=== PATIENT | female | born 1970 | race Two or more races ===

== ENCOUNTER 2024-11-16 12:22 | Emergency (ER) | payer OTHER, SELFPAY ==
[2024-11-16 12:23] VITALS: BMI 39.4
[2024-11-16 12:37] VITALS: BP 141/85; PULSE 75; RESP 16; TEMP 36.6; O2SAT 99
--- NOTE | 2024-11-16 12:40 | XR_ITS ---
Examination: PA lateral chest 2 views TECHNIQUE: Upright PA lateral chest 2 views Exam date and time: November 16, 2024 at 12:57 PM INDICATIONS: Posterior chest pain today FINDINGS: Normal heart size Lungs are clear. The osseous structures are intact IMPRESSION: No active disease
--- NOTE | 2024-11-16 12:40 | EKG_ITS ---
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
--- NOTE | 2024-11-16 12:41 | EDNOTE_ITS ---
<Statement entered by Akila Thomson MD - 11/16/24 17:41> As co-signing physician, I was present and available for consult prn. I concur with the plan and care as documented by the midlevel provider. ED Chest Pain RME/HPI General Chief Complaint: Chest Pain Stated Complaint: CHEST PAIN SINCE YESTERDAY Time Seen by Provider: 11/16/24 12:28 Source: patient Arrival date/time: 11/16/24 12:22 53-year-old female with a history of hypertension presents to the emergency room with a chief complaint of 10 out of 10 sternal chest pain that radiates to her back x 2 days Mode of arrival: ambulatory Limitations: no limitations Related Data Previous Rx's ?Medication ?Instructions ?Recorded Hydrocodone/Acetaminophen * (NORCO 1 tab PO Q6H PRN pa in #14 tabs 01/25/17 5/325 *) ondansetron 4 mg disintegrating 4 mg PO Q8H PRN nausea and 02/29/24 tablet vomiting #14 tabs Allergies Allergy/AdvReac Type Severity Reaction Status Date / Time LATEX GLOVES Allergy Unknown Rash Uncoded 11/16/24 12:25 Review of Systems Review of Systems Systems Reviewed: All systems reviewed, normal except as documented Constitutional Constitutional: Reports system reviewed and no additional complaints, except as documented, Denies fatigue, Denies fever(s), Denies headache(s) and Denies weakness Eyes Eyes: Reports system reviewed and no additional complaints, except as documented, Denies blurry vision and Denies change in vision ENT Ears, Nose, Mouth, and Throat: Reports system reviewed and no additional complaints, except as documented, Denies otalgia, Denies headache(s), Denies nasal congestion, Denies throat swelling and Denies vertigo Cardiovascular Cardiovascular: Reports system reviewed and no additional complaints, except as documented, Reports chest pain, Reports chest pain with activity, Denies dyspnea and Denies dyspnea on exertion Respiratory Respiratory: Reports system reviewed and no additional complaints, except as documented, Denies chest congestion, Denies cough, Denies dyspnea, Denies dyspnea on exertion and Denies wheezing Gastrointestinal Gastrointestinal: Reports system reviewed and no additional complaints, except as documented, Denies abdominal pain, Denies cramping, Denies nausea and Denies vomiting Genitourinary Genitourinary: Reports system reviewed and no additional complaints, except as documented Musculoskeletal Musculoskeletal: Reports system reviewed and no additional complaints, except as documented and Denies back pain Integumentary/Breasts Skin/Breast: Reports system reviewed and no additional complaints, except as documented and Denies wounds Neurologic Neurologic: Reports system reviewed and no additional complaints, except as documented, Denies confusion, Denies headache(s), Denies lack of coordination, Denies vertigo and Denies weakness Psychiatric Psychiatric: Reports system reviewed and no additional complaints, except as documented, Denies anxiety, Denies confusion, Denies depression, Denies paranoia, Denies suicidal ideation and Denies tactile hallucinations Endocrine Endocrine: Reports system reviewed and no additional complaints, except as documented and Denies fatigue Hematologic/Lymphatic Hematologic/Lymphatic: Reports system reviewed and no additional complaints, except as documented and Denies lymphadenopathy Allergic/Immunologic Allergic/Immunologic: Reports system reviewed and no additional complaints, except as documented, Denies throat swelling, Denies urticaria and Denies wheezing Past Medical History Social History SMOKING STATUS: Never smoker ED Exam General Limitations: Present no limitations General appearance: Present alert and in no apparent distress Head Head exam: Present atraumatic Eye Eye exam: Present normal appearance, PERRL and EOMI ENT ENT exam: Present normal exam, normal oropharynx and mucous membranes moist Neck Neck exam: Present normal inspection, full ROM and trachea midline Chest Chest inspection: Present normal inspection and symmetric chest wall rise Respiratory Respiratory exam: Present normal lung sounds bilaterally; Absent respiratory distress, wheezes, stridor, accessory muscle use or prolonged expiratory phase Cardiovascular Cardiovascular exam: Present regular rate, normal rhythm, normal heart sounds, +S1 and +S2; Absent bradycardia, tachycardia, irregular rhythm, systolic murmur, diastolic murmur or JVD Abdominal Exam Abdominal exam: Present soft and normal bowel sounds Extremities Exam Extremities exam: Present normal inspection and full ROM Back Exam Back exam: Present normal inspection and full ROM Neurological Exam Neurological exam: Present alert, oriented X3 and CN II-XII intact Psychiatric Psychiatric exam: Present normal affect and normal mood Skin Skin exam: Present warm, dry, intact and normal color Course Quality Measures none Orders Category Date Time Status EKG (ED ONLY) *Do not use* NOW Care 11/16/24 12:40 Completed EKG (ED Only) Stat Exams 11/16/24 12:40 Draft XR chest 2V Stat Exams 11/16/24 12:40 Completed B-Type Natriuretic Peptide Stat Lab 11/16/24 13:05 Completed CBC Stat Lab 11/16/24 13:05 Completed Comprehensive Metabolic Panel Stat Lab 11/16/24 13:05 Completed Magnesium Stat Lab 11/16/24 13:05 Completed Partial Thromboplastin Time Stat Lab 11/16/24 13:05 Completed Prothrombin Time with INR Stat Lab 11/16/24 13:05 Completed Troponin I Stat Lab 11/16/24 13:05 Completed Vital Signs Vital signs: Vital Signs Temperature 97.8 F 11/16/24 12:37 Pulse Rate 75 11/16/24 12:37 Respiratory Rate 16 11/16/24 12:37 Blood Pressure 141/85 H 11/16/24 12:37 Pulse Oximetry (%) 99 11/16/24 12:37 Oxygen Delivery Method Room Air 11/16/24 12:37 Procedures -ED EKG Interpretation #1: Date of EK11/16/24 Rate: 77 Interpretation: Reviewed by me EKG Impression: Normal sinus rhythm Additional EKG comment: EKG shows normal sinus rhythm at [address] deviation Chest Pain MDM Narrative MDM Narrative:: 53-year-old female with a history of hypertension presents to the emergency room with a chief complaint of 10 out of 10 sternal chest pain that radiates to her back x 2 days Patient is hemodynamically stable and in no apparent distress Lung sounds are clear bilaterally there is no wheezing or any abnormal breath sounds. EKG was completed and shows normal sinus rhythm at [address] deviation. CBC CMP troponin were all negative X-ray was completed and was negative for any pneumonic infiltrates. Patient was discharged and educated to follow-up with primary care provider and return to the emergency room for any evidence of worsening signs or symptoms Patient data External records reviewed:: [facility] previous records Clinical information provided by:: patient Social determinants that could affect healthcare access:: none Patient has the following chronic illnesses:: Hypertension How is presenting disease/condition affected by chronic disease/condition?: uneffected by Evaluation data The following diagnostics were reviewed and interpreted by me:: lab results and radiology exam(s) Lab and/or radiology exams considered but not ordered:: Labs and radiology exams considered and ordered Interpretation Summary: Chest [id number]: Normal heart size Lungs are clear. The osseous structures are intact IMPRESSION: No active disease Medications / Prescriptions Medications or Prescriptions considered but not ordered:: Medication not given Medication administrations:: Medication not given Consultations Consultation(s) initiated? (list below): No Diagnosis Chest Pain Differential Diagnosis: stable angina, atypical chest pain, st elevation myocardial infarction and chest pain Most likely diagnosis given after review of the tests above:: Chest pain noncardiac Admission Indicated Admission indicated?: not indicated Admission Request Was there a request for admission?: No Disposition Plan Disposition Plan: Discharge Discharge Attestation Discharge Attestation: The patient and all family members were given an opportunity to ask questions and understood the discharge instructions. Discharge instructions specifically effects, indications for sooner follow up or return to the emergency department, and the expected course of current diagnosis. Patient condition: Stable Discharge Plan Plan Patient Disposition: HOME (Self Care) Disposition Comment: Stable yeah Prescriptions/Referrals Prescriptions/Med Rec: No Action Hydrocodone/Acetaminophen * (NORCO 5/325 *) 1 TAB tablet 1 tab PO Q6H PRN (Reason: pain) Qty: 14 0RF ondansetron 4 mg tablet,disintegrating 4 mg PO Q8H PRN (Reason: nausea and vomiting) Qty: 14 0RF Referrals: Charu Madrid NP [Primary Care Provider] - In 1 week Problem List Clinical Impression: Chest pain, Chest pain, non-cardiac Patient/Caregiver Discharge Instructions Education Materials: ED Chest Pain, Noncardiac, ED Chest Pain, Uncertain Cause Additional Instructions: Please follow-up with your primary care provider in the next 24 to 48 hours. Your cardiac examination was completed and was negative for any acute findings. Your blood work was within normal limits. Your chest x-ray was negative for any pneumonic infiltrates. For any evidence of worsening signs or symptoms please return to the emergency room immediately Print Language: Norwegian Stand Alone Forms: Sheyla Award Info., Patient Portal Info Letter MASSIEL/LIYA Supervising Physician MASSIEL/LIYA Supervising Physician: Dr. THOMSON
[2024-11-16 13:48] LABS: Basophils # (Auto) 0.1 Thou/mm3 (0.0-0.2); Basophils % (Auto) 1 % (0-2.5); Eosinophils # (Auto) 0.1 Thou/mm3 (0.0-0.5); Eosinophils % (Auto) 2 % (0-10); Hematocrit 35.2 % (36.0-46.0); Immature Granulocytes % (Auto) 0 % (0-0); Immature Granulocytes Auto 0.03 Thou/mm3 (0.00-0.00); Lymphocytes # (Auto) 2.2 Thou/mm3 (1.0-4.8); Lymphocytes % (Auto) 27 % (10-50); Mean Corpuscular HGB Conc 34.1 g/dl (31.0-37.0); Mean Corpuscular Hemoglobin 28.3 pg (25.0-35.0); Mean Corpuscular Volume 83 fL (80-100); Monocytes # (Auto) 0.5 Thou/mm3 (0.0-0.8); Monocytes % (Auto) 6 % (0-12); Neutrophils # (Auto) 5.2 Thou/mm3 (1.8-7.7); Neutrophils % (Auto) 64 % (37-80); Nucleated Red Blood Cell % 0 /100 WBC (0); Platelet Count 304 Thou/mm3 (140-440); RDW Standard Deviation 41.7 fL (36.4-46.3); Red Blood Count 4.24 Miln/mm3 (4.00-5.20); White Blood Count 8.2 Thou/mm3 (3.6-11.0)
[2024-11-16 14:04] LABS: B-Type Natriuretic Peptide < 20 pg/mL (0-100)
[2024-11-16 14:08] LABS: Alanine Aminotransferase 26 U/L (10-49); Albumin, Serum 4.4 gm/dL (3.5-5.0); Albumin/Globulin Ratio 1.4 (1.2-2.2); Alkaline Phosphatase 82 U/L (46-116); Anion Gap 9 (7-16); Aspartate Amino Transferase 25 U/L (0-34); BUN/Creatinine Ratio 21 Ratio (12-20); Bilirubin,Total 0.4 mg/dL (0.3-1.2); Blood Urea Nitrogen 15 mg/dL (9-23); Calcium 9.9 mg/dL (8.3-10.6); Calcium (Corrected) 9.9 mg/dL (8.5-10.1); Carbon Dioxide 26.8 mMol/L (20.0-31.0); Chloride 105 mMol/L (98-107); Creatinine (Component) 0.7 mg/dL (0.6-1.3); Estimated Creatinine Clearance 108.1 mL/min (>60); Globulin 3.1 gm/dL (2.3-3.5); Glucose 129 mg/dL (74-106); Magnesium 1.9 mg/dL (1.6-2.6); Osmolality,Calculated 284 (275-295); Potassium 3.6 mMol/L (3.4-5.1); Sodium 141 mMol/L (136-145); Total Protein 7.5 gm/dL (5.7-8.2); Troponin I < 0.002 ng/mL (0.0-0.045); eGFR > 60 See Note
[2024-11-16 14:14] LABS: Partial Thromboplastin Time 27.4 Seconds (22.0-36.0); Prothrombin Time 10.9 Seconds (9.0-12.2)
[2024-11-16 15:09] VITALS: BP 145/80; PULSE 77; RESP 17; TEMP 37.1; O2SAT 98
== END 2024-11-16 15:27 | disposition home or self-care (01) ==
PROVIDERS: Nurse Practitioner Family; Emergency Provider Emergency Medicine; PCP Nurse Practitioner Family
DX: R07.89 Other chest pain (principal); I10 Essential (primary) hypertension; Z91.040 Latex allergy status
CPT/HCPCS: 36415; 71046; 80053; 83735; 83880; 84484; 85025; 85610; 85730; 93005; 99283

== ENCOUNTER 2024-11-22 10:53 | Emergency (ER) | payer OTHER, SELFPAY ==
[2024-11-22 11:19] VITALS: BP 136/62; PULSE 74; RESP 18; TEMP 36.6; O2SAT 99; BMI 42.0
--- NOTE | 2024-11-22 11:23 | EKG_ITS ---
[facility] Test Date: 2024-11-22 Pat Name: JUANCHO HAWK Department: Room: - Gender: Female Dictaphone Operator: : 1970 Requested By: Philipp Muñoz (LIBORIO) Order Number: [id number] Reading MD: Philipp Muñoz (LIBORIO) Measurements Intervals [place] Rate: 73 P: 30 [place]: 128 QRS: 19 QRSD: 94 T: 26 QT: 338 QTc: 373 Interpretive Statements SINUS RHYTHM Compared to ECG 11/16/2024 12:45:12 No significant changes /store/S0/[id number]/[id number]
--- NOTE | 2024-11-22 11:23 | XR_ITS ---
Examination: CT abdomen and pelvis without contrast. Coronal 3-D reconstructions. Sagittal 2-D reconstructions. Date and time of exam:November 22, 2024 1337 hours INDICATIONS: Upper abdominal pain lower abdominal pain beginning one week ago CTDI: vol (mGy): 13.7 DLP: (mGycm): 777 Technique: Axial images of the abdomen have been obtained, 3 mm slice thickness Intravenous contrast material has not been administered. Low dose protocols were performed. One or more of the following dose reduction techniques were used; automated exposure control, adjustment of the mA and/or KV according to patient size, use of iterative reconstruction technique. Findings: No focal liver or splenic lesions Absent gallbladder No pancreatic or adrenal mass No renal or ureteral calculi, no hydronephrosis Aorta normal size Normal appendix No bowel obstruction Scattered colonic diverticulosis, no diverticulitis Anteverted uterus No bladder mass or bladder calculi No adnexal mass Advanced disc narrowing L3-L4, L5-S1 Mild to moderate left hip joint narrowing IMPRESSION: No renal or ureteral calculi, no hydronephrosis Normal appendix Scattered colonic diverticulosis, no diverticulitis No bowel obstruction
--- NOTE | 2024-11-22 11:24 | PD.EDRME ---
Rapid Medical Screening Exam [facility] Arrival date/time: 11/22/24 10:53 53-year-old female history of hypertension and surgical history significant for cholecystectomy presents emergency department complains of upper abdominal pain and abdominal burning Chief Complaint: Abdominal Pain Vital signs: Vital Signs Temperature 97.9 F 11/22/24 11:19 Pulse Rate 74 11/22/24 11:19 Respiratory Rate 18 11/22/24 11:19 Blood Pressure 136/62 H 11/22/24 11:19 Pulse Oximetry (%) 99 11/22/24 11:19 Oxygen Delivery Method Room Air 11/22/24 11:19
[2024-11-22] MEDS: MG HYD/AL HYD/SIME (Maalox Reg) SUSP 30 ML UDC PO (11:31)
[2024-11-22] MEDS: LIDOCAINE VISCOUS 2% 15 ML UDC PO (11:31)
[2024-11-22] MEDS: FAMOTIDINE 20 MG TABLET PO (11:31)
[2024-11-22 11:54] LABS: Basophils % (Auto) 1 % (0-2.5); Eosinophils # (Auto) 0.2 Thou/mm3 (0.0-0.5); Eosinophils % (Auto) 2 % (0-10); Hematocrit 35.2 % (36.0-46.0); Hemoglobin 12.1 g/dL (12.0-16.0); Immature Granulocytes % (Auto) 0 % (0-0); Immature Granulocytes Auto 0.02 Thou/mm3 (0.00-0.00); Lymphocytes % (Auto) 24 % (10-50); Mean Corpuscular HGB Conc 34.4 g/dl (31.0-37.0); Mean Corpuscular Hemoglobin 28.3 pg (25.0-35.0); Mean Corpuscular Volume 82 fL (80-100); Monocytes # (Auto) 0.5 Thou/mm3 (0.0-0.8); Monocytes % (Auto) 7 % (0-12); Neutrophils # (Auto) 5.4 Thou/mm3 (1.8-7.7); Neutrophils % (Auto) 67 % (37-80); Nucleated Red Blood Cell % 0 /100 WBC (0); Platelet Count 313 Thou/mm3 (140-440); RDW Standard Deviation 41.5 fL (36.4-46.3); Red Blood Count 4.27 Miln/mm3 (4.00-5.20); White Blood Count 8.1 Thou/mm3 (3.6-11.0)
[2024-11-22 12:25] LABS: Alanine Aminotransferase 28 U/L (10-49); Albumin, Serum 4.4 gm/dL (3.5-5.0); Albumin/Globulin Ratio 1.4 (1.2-2.2); Alkaline Phosphatase 81 U/L (46-116); Anion Gap 11 (7-16); Aspartate Amino Transferase 28 U/L (0-34); BUN/Creatinine Ratio 16 Ratio (12-20); Bilirubin,Total 0.5 mg/dL (0.3-1.2); Blood Urea Nitrogen 11 mg/dL (9-23); Carbon Dioxide 26.3 mMol/L (20.0-31.0); Chloride 102 mMol/L (98-107); Creatinine (Component) 0.7 mg/dL (0.6-1.3); Estimated Creatinine Clearance 104.1 mL/min (>60); Globulin 3.1 gm/dL (2.3-3.5); Glucose 129 mg/dL (74-106); Lipase 44 U/L (12-53); Osmolality,Calculated 278 (275-295); Potassium 3.7 mMol/L (3.4-5.1); Sodium 139 mMol/L (136-145); Total Protein 7.5 gm/dL (5.7-8.2); Troponin I < 0.002 ng/mL (0.0-0.045); eGFR > 60 See Note
[2024-11-22 13:12] LABS: Collection Type, Urine Clean Catch
[2024-11-22 13:21] LABS: HCG Qualitative,Urine Negative
[2024-11-22 13:29] LABS: Bacteria,Urine Rare; Bilirubin,Urine Negative (Negative); Blood,Urine Negative (Negative); Clarity,Urine Clear (Clear/Hazy); Color,Urine Lt-Yellow (Lt Yel-Yel); Culture Indicated,Urine Not Indicated; Glucose, Urine Negative (Negative); Ketones,Urine Negative (Negative); Leukocyte Esterase,Urine Negative (Negative); Nitrite,Urine Negative (Negative); Protein,Urine Negative (Neg - Trace); RBC,Urine 1 /hpf (0-3); Specific Gravity,Urine 1.009 (1.001-1.035); Squamous Epithelial Cell,Urine < 1 /hpf (0-5); Urobilinogen,Urine Negative mg/dL (0.0-1.0); WBC,Urine 1 /hpf (0-5)
--- NOTE | 2024-11-22 14:29 | EDNOTE_ITS ---
ED Abdominal Pain RME/HPI General Chief Complaint: Abdominal Pain Stated complaint: EPIGASTRIC PAIN X 7 DAYS SINCE LAST ER VISIT Time seen by provider: 11/22/24 14:22 Arrival date/time: 11/22/24 10:53 RME / HPI RME / HPI narrative: 53-year-old female history of hypertension and surgical history significant for cholecystectomy presents emergency department complains of upper abdominal pain and abdominal burning, has been ongoing for the last 7 days, severity moderate. Denies any vomiting denies any fever denies any cough denies any other complaints no medication was taken prior to arrival. Tomorrow patient will see her PCP. Related Data Previous Rx's ?Medication ?Instructions ?Recorded Hydrocodone/Acetaminophen * (NORCO 1 tab PO Q6H PRN pa in #14 tabs 01/25/17 5/325 *) ondansetron 4 mg disintegrating 4 mg PO Q8H PRN nausea and 02/29/24 tablet vomiting #14 tabs pantoprazole 40 mg tablet,delayed 40 mg PO QDAY #30 ta bs 11/22/24 release (Protonix) Allergies Allergy/AdvReac Type Severity Reaction Status Date / Time LATEX GLOVES Allergy Unknown Rash Uncoded 11/22/24 10:54 Review of Systems Review of Systems Narrative Review of Systems: Review of system reviewed and within normal limits except mentioned in HPI ED Exam Narrative Physical exam: VITAL SIGNS: Reviewed. GENERAL APPEARANCE: Alert and interactive, follows commands, no acute distress, HEAD AND FACE: Non-traumatic. ENT: PERRL, pink conjunctivitis, eyelid no trauma, Mucous membrane moist. NECK: Supple, nontender, no nuchal rigidity. CHEST: No tenderness, no crepitus, no paradoxical movement, no retractions. LUNGS: Clear, well ventilated, symmetric, no rales, no wheezing, no ronchi, no stridor, good breath sounds bilaterally. HEART: Regular rate, regular rhythm, no murmur, no gallops. ABDOMEN: Soft, positive bowel sounds, nondistended, no guarding, epigastric tenderness, no rebound, no masses, RECTAL: Deferred. GENITAL: Deferred. NEUROLOGICAL: Gross motor function intact sensory function intact, Appropriate for age. MUSCULOSKELETAL: low back nontender, full range of motion. EXTREMITIES: Nontender, full range of motion. SKIN: Color pink, dry, no rash, no lacerations, no abrasions, no contusions. LYMPHATICS: Deferred. Course Quality Measures none Orders Category Date Time Status EKG (ED ONLY) *Do not use* NOW Care 11/22/24 11:[address] abdomen pelvis wo con Stat Exams 11/22/24 11:23 Completed EKG (ED Only) Stat Exams 11/22/24 11:23 Draft CBC Stat Lab 11/22/24 11:38 Completed Comprehensive Metabolic Panel Stat Lab 11/22/24 11:38 Completed HCG Qualitative,Urine Stat Lab 11/22/24 12:52 Completed Lipase Stat Lab 11/22/24 11:38 Completed Troponin I Stat Lab 11/22/24 11:38 Completed UA, C/S IF [Urinalysis, C/S if Indicated] Stat Lab 11/22/24 12:52 Completed Famotidine [Pepcid] Med 11/22/24 11:23 Discontinued 20 mg PO X1 ONE Lidocaine 2% Viscous [Xylocaine 2% Viscous] Med 11/22/24 11:23 Discontinued 15 ml PO X1 ONE Metoclopramide [Reglan] Med 11/22/24 14:29 Once 10 mg PO X1 ONE mg Hyd/Al Hyd/Kalpesh Susp [Maalox Susp] Med 11/22/24 11:23 Discontinued 30 ml PO X1 ONE Vital Signs Vital signs: Vital Signs Temperature 97.9 F 11/22/24 11:19 Pulse Rate 74 11/22/24 11:19 Respiratory Rate 18 11/22/24 11:19 Blood Pressure 136/62 H 11/22/24 11:19 Pulse Oximetry (%) 99 11/22/24 11:19 Oxygen Delivery Method Room Air 11/22/24 11:19 Abdominal Pain MDM MDM Narrative MDM Narrative:: 53-year-old female history of hypertension and surgical history significant for cholecystectomy presents emergency department complains of upper abdominal pain and abdominal burning, has been ongoing for the last 7 days, severity moderate. Denies any vomiting denies any fever denies any cough denies any other complaints no medication was taken prior to arrival. Tomorrow patient will see her PCP. Patient's workup today all came back normal including CT scan of the abdomen and pelvis. Troponin was also noted normal. EKG showed normal sinus rhythm, ventricular rate of 73 bpm, no ST segment elevation depression Results discussed with the patient. Patient is probably having GERD was advised to follow-up with PCP and for referral to GI specialist MD. Patient appears nontoxic and hemodynamically stable. Patient discharged home and instructed to follow-up with primary care provider in 24 to 48 hours. Instructed to return to the emergency department immediately if worsening of symptoms Patient data External records reviewed:: None Clinical information provided by:: patient Social determinants that could affect healthcare access:: none Patient has the following chronic illnesses:: None How is presenting disease/condition affected by chronic disease/condition?: no chronic disease Evaluation data The following diagnostics were reviewed and interpreted by me:: lab results and radiology exam(s) Lab and/or radiology exams considered but not ordered:: None Interpretation Summary: See results MDM Medications / Prescriptions Medications or Prescriptions considered but not ordered:: None Medication administrations:: Medication Administration History Discontinued Medications Al Hydrox/Mg Hydrox/Simethicone (Mg Hyd/Al Hyd/Kalpesh (Maalox Reg) Susp 30 Ml Udc) 30 ml PO X1 ONE Stop: 11/22/24 11:24 Last Admin: 11/22/24 11:31 Dose: 30 ml Documented By: OA Famotidine (Famotidine 20 Mg Tablet) 20 mg PO X1 ONE Stop: 11/22/24 11:24 Last Admin: 11/22/24 11:31 Dose: 20 mg Documented By: OA Lidocaine HCl (Lidocaine Viscous 2% 15 Ml Udc) 15 ml PO X1 ONE Stop: 11/22/24 11:24 Last Admin: 11/22/24 11:31 Dose: 15 ml Documented By: OA Bentyl, Maalox, Pepcid and lidocaine viscous with significant improvement pain Consultations Consultation(s) initiated? (list below): No Diagnosis Differential diagnosis abdominal pain: abdominal pain, diverticulitis, gastroenteritis and pancreatitis Most likely diagnosis given after review of the tests above:: Epigastric pain, GERD Admission Indicated Admission indicated?: not indicated Admission Request Was there a request for admission?: No Disposition Plan Disposition Plan: Discharge Discharge Attestation Discharge Attestation: The patient was given an opportunity to ask questions and understood the discharge instructions. Discharge instructions specifically effects, indications for sooner follow up or return to the emergency department, and the expected course of current diagnosis. Patient condition: Stable Discharge Plan Plan Patient Disposition: HOME (Self Care) Disposition Comment: Stable Prescriptions/Referrals Prescriptions/Med Rec: New pantoprazole [Protonix] 40 mg tablet,delayed release (DR/EC) 40 mg PO QDAY Qty: 30 0RF No Action Hydrocodone/Acetaminophen * (NORCO 5/325 *) 1 TAB tablet 1 tab PO Q6H PRN (Reason: pain) Qty: 14 0RF ondansetron 4 mg tablet,disintegrating 4 mg PO Q8H PRN (Reason: nausea and vomiting) Qty: 14 0RF Referrals: Charu Madrid [employer] [Primary Care Provider] - In 1 week Problem List Clinical Impression: GERD with esophagitis Patient/Caregiver Discharge Instructions Discharge Activity: activity as tolerated Education Materials: How Acid Reflux Affects Your Throat Additional Instructions: Thank you for the opportunity for serving you today. You are stable for discharged . You are advised to: Follow-up with your PCP in 1 to 2 days Return to ED for worsening of symptoms Increase oral fluids Take medication as prescribed Print Language: Burmese Stand Alone Forms: Sheyla Award Info., Patient Portal Info Letter
== END 2024-11-22 16:10 | disposition home or self-care (01) ==
PROVIDERS: Nurse Practitioner Primary Care; Emergency Provider Emergency Medicine; PCP Nurse Practitioner Family
DX: K21.00 Gastro-esophageal reflux disease with esophagitis, without bleeding (principal); I10 Essential (primary) hypertension; Z90.49 Acquired absence of other specified parts of digestive tract; Z79.899 Other long term (current) drug therapy
CPT/HCPCS: 36415; 74176; 80053; 81001; 81025; 83690; 84484; 85025; 93005; 99284; J3490; A9270

== ENCOUNTER → 2024-12-01 | Outpatient (CLI) | payer OTHER, SELFPAY ==
[2024-12-01 12:28] LABS: Urea Breath Test Negative (Negative)
== END | disposition home or self-care (01) ==
LOC: COPL 11:05
PROVIDERS: PCP Family Medicine; Referring Provider Nurse Practitioner Family; Visit Provider Nurse Practitioner Family
DX: R10.9 Unspecified abdominal pain (principal)
CPT/HCPCS: 83013; 83014

== ENCOUNTER 2025-02-19 10:50 | Day surgery (SDC) | payer OTHER, SELFPAY ==
[2025-02-19] VITALS (8 sets, daily range): BP systolic 152–198; BP diastolic 82–109; PULSE 69–88; RESP 12–18; TEMP 36.3–36.6; O2SAT 97–100; BMI 36.7
--- NOTE | 2025-02-19 11:44 | SUR.PREOP ---
PAIENT STATES WAS VERY NERVOUS EARLIER. B/P RECHECKE 159/95
[2025-02-19] MEDS: fentaNYL CIT INJ 50 mCg/ML AMP 2ML (ASD USE ONLY) IV (12:45)
[2025-02-19] MEDS: SODIUM CHLORIDE 0.9% 500 ML 500 ML 20 ML IV (12:45)
[2025-02-19] MEDS: DiphenhydrAMINE INJ 50 MG/ML VIAL 25 MG IV (12:45)
[2025-02-19] MEDS: MIDAZOLAM INJ 1 MG/ML VIAL 2 ML (ASD USE ONLY) 2 MG IV (12:45)
== END 2025-02-19 13:25 | disposition home or self-care (01) ==
PROVIDERS: PCP Nurse Practitioner Family; Referring Provider Specialist; Visit Provider Specialist
PROC: (CPT 43239; principal; 2025-02-19 12:30)
DX: K22.2 Esophageal obstruction (principal); K31.89 Other diseases of stomach and duodenum; K20.91 Esophagitis, unspecified with bleeding; K29.51 Unspecified chronic gastritis with bleeding; K29.71 Gastritis, unspecified, with bleeding
CPT/HCPCS: 43248; 43239; 81025; C1769; J1200; J2250; J3010; J7040

== ENCOUNTER 2025-02-22 11:12 | Emergency (ER) | payer OTHER, SELFPAY ==
--- NOTE | 2025-02-22 11:15 | EKG_ITS ---
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
[2025-02-22 11:20] VITALS: BP 158/84; PULSE 71; RESP 18; TEMP 36.4; O2SAT 100; BMI 36.3
--- NOTE | 2025-02-22 11:41 | XR_ITS ---
Examination: PA lateral chest 2 views TECHNIQUE: Upright PA lateral chest 2 views Date and time: February 22, 2025 12:10 PM Comparison November 16, 2024 INDICATIONS: Chest pain beginning 3 days ago. FINDINGS: Normal heart size. Lungs are clear. The osseous structures are intact IMPRESSION: No active disease
--- NOTE | 2025-02-22 11:41 | PD.EDRME ---
Rapid Medical Screening Exam [facility] Arrival date/time: 02/22/25 11:12 54-year-old female with a history of GERD presents to the emergency room with a chief complaint of 7 out of 10 chest pain x 3 days. Patient states she recently got an endoscopy done on Wednesday and her symptoms began on Wednesday. I have greeted and performed a focused initial assessment of this patient. A comprehensive ED assessment and evaluation of the patient, analysis of all test results, and completion of the medical decision making process will be conducted by additional ED providers. Chief Complaint: Chest Pain Time Seen by Provider: 02/22/25 11:30 Vital signs: Vital Signs Temperature 97.6 F 02/22/25 11:20 Pulse Rate 71 02/22/25 11:20 Respiratory Rate 18 02/22/25 11:20 Blood Pressure 158/84 H 02/22/25 11:20 Pulse Oximetry (%) 100 02/22/25 11:20 Oxygen Delivery Method Room Air 02/22/25 11:20 Vital signs reviewed by provider: Yes
[2025-02-22 12:44] LABS: Basophils % (Auto) 0 % (0-2.5); Eosinophils % (Auto) 0 % (0-10); Hemoglobin 12.6 g/dL (12.0-16.0); Immature Granulocytes % (Auto) 0 % (0-0); Immature Granulocytes Auto 0.02 Thou/mm3 (0.00-0.00); Lymphocytes # (Auto) 1.9 Thou/mm3 (1.0-4.8); Lymphocytes % (Auto) 25 % (10-50); Mean Corpuscular Hemoglobin 28.7 pg (25.0-35.0); Mean Corpuscular Volume 82 fL (80-100); Monocytes # (Auto) 0.6 Thou/mm3 (0.0-0.8); Monocytes % (Auto) 7 % (0-12); Neutrophils % (Auto) 66 % (37-80); Nucleated Red Blood Cell % 0 /100 WBC (0); Platelet Count 330 Thou/mm3 (140-440); RDW Standard Deviation 40.3 fL (36.4-46.3); Red Blood Count 4.39 Miln/mm3 (4.00-5.20); White Blood Count 7.5 Thou/mm3 (3.6-11.0)
[2025-02-22 13:04] LABS: INR 1.1 (0.9-1.3); Partial Thromboplastin Time 28.6 Seconds (22.0-36.0); Prothrombin Time 11.5 Seconds (9.0-12.2)
[2025-02-22 13:14] LABS: B-Type Natriuretic Peptide < 20 pg/mL (0-100)
[2025-02-22 14:43] LABS: Alanine Aminotransferase 23 U/L (10-49); Albumin, Serum 4.8 gm/dL (3.5-5.0); Albumin/Globulin Ratio 1.6 (1.2-2.2); Alkaline Phosphatase 86 U/L (46-116); Anion Gap 13 (7-16); Aspartate Amino Transferase 29 U/L (0-34); BUN/Creatinine Ratio 15 Ratio (12-20); Bilirubin,Total 0.7 mg/dL (0.3-1.2); Blood Urea Nitrogen 12 mg/dL (9-23); Calcium 10.1 mg/dL (8.3-10.6); Calcium (Corrected) 10.1 mg/dL (8.5-10.1); Carbon Dioxide 24.5 mMol/L (20.0-31.0); Chloride 101 mMol/L (98-107); Creatinine (Component) 0.8 mg/dL (0.6-1.3); Estimated Creatinine Clearance 89.4 mL/min (>60); Glucose 98 mg/dL (74-106); Magnesium 2.1 mg/dL (1.6-2.6); Osmolality,Calculated 275 (275-295); Potassium 4.1 mMol/L (3.4-5.1); Sodium 138 mMol/L (136-145); Total Protein 7.8 gm/dL (5.7-8.2); Troponin I < 0.002 ng/mL (0.0-0.045); eGFR > 60 See Note
--- NOTE | 2025-02-22 15:10 | PD.EDCHEST ---
ED Chest Pain RME/HPI General Chief Complaint: Chest Pain Stated Complaint: CHEST PAIN, HTN Time Seen by Provider: 02/22/25 11:30 Arrival date/time: 02/22/25 11:12 RME / HPI RME / HPI narrative: 54-year-old female with a history of GERD presents to the emergency room with a chief complaint of 7 out of 10 substernal x 3 days. Patient states she recently got an endoscopy done on Wednesday and her symptoms began on Wednesday. Patient also feels very anxious. Denies any vomiting denies any other complaints no medication was taken prior to arrival. Related Data Home Medications ?Medication ?Instructions ?Recorded ?Confirmed albuterol sulfate 90 mcg/actuation 1 inh inhalation Q4H PRN shortness 02/19/25 02/19/25 aerosol inhaler of breath or wheezing loratadine 10 mg tablet 10 mg PO QDAY 02/19/25 02/19/25 olmesartan 20 1 tab PO QDAY 02/19/25 02/19/25 mg-hydrochlorothiazide 12.5 mg tablet thyroid (pork) 60 mg tablet 60 mg PO QDAY 02/19/25 02/19/25 ([place] Thyroid) Previous Rx's ?Medication ?Instructions ?Recorded pantoprazole 40 mg tablet,delayed 40 mg PO QDAY #30 tabs 11/22/24 release (Protonix) Allergies Allergy/AdvReac Type Severity Reaction Status Date / Time LATEX GLOVES Allergy Unknown Rash Uncoded 02/19/25 11:17 Course Quality Measures none Orders Category Date Time Status EKG (ED ONLY) *Do not use* NOW Care 02/22/25 11:15 Completed EKG (ED Only) Stat Exams 02/22/25 11:15 Draft XR chest 2V Stat Exams 02/22/25 11:41 Completed B-Type Natriuretic Peptide Stat Lab 02/22/25 12:21 Completed CBC Stat Lab 02/22/25 12:21 Completed Comprehensive Metabolic Panel Stat Lab 02/22/25 12:21 Completed Magnesium Stat Lab 02/22/25 12:21 Completed Partial Thromboplastin Time Stat Lab 02/22/25 12:21 Completed Prothrombin Time with INR Stat Lab 02/22/25 12:21 Completed Troponin I Stat Lab 02/22/25 12:21 Completed Vital Signs Vital signs: Vital Signs Temperature 97.6 F 02/22/25 11:20 Pulse Rate 71 02/22/25 11:20 Respiratory Rate 18 02/22/25 11:20 Blood Pressure 158/84 H 02/22/25 11:20 Pulse Oximetry (%) 100 02/22/25 11:20 Oxygen Delivery Method Room Air 02/22/25 11:20 Chest Pain MDM Narrative [facility] Narrative:: 54-year-old female with a history of GERD presents to the emergency room with a chief complaint of 7 out of 10 substernal x 3 days. Patient states she recently got an endoscopy done on Wednesday and her symptoms began on Wednesday. Patient also feels very anxious. Denies any vomiting denies any other complaints no medication was taken prior to arrival. EKG showed normal sinus rhythm, ventricular rate of 76 bpm, no ST segment elevation or depression noted. I personally reviewed and interpreted the x-ray of this patient. There is no acute abnormalities found, no infiltrates no pneumothorax no hemothorax normal chest x-ray. Review of other structures was without significant abnormal findings also. I additionally reviewed the radiologist report and agree with the interpretation. Laboratory workup including troponin came back normal. Patient appears nontoxic and hemodynamically stable. Patient discharged home and instructed to follow-up with primary care provider in 24 to 48 hours. Instructed to return to the emergency department immediately if worsening of symptoms Patient data External records reviewed:: None Clinical information provided by:: patient Social determinants that could affect healthcare access:: none Patient has the following chronic illnesses:: Daughter hypothyroidism hypertension How is presenting disease/condition affected by chronic disease/condition?: exacerbated by Evaluation data The following diagnostics were reviewed and interpreted by me:: lab results and radiology exam(s) Lab and/or radiology exams considered but not ordered:: None Interpretation Summary: See results [facility] Medications / Prescriptions Medications or Prescriptions considered but not ordered:: None Medication administrations:: None Consultations Consultation(s) initiated? (list below): No Diagnosis Chest Pain Differential Diagnosis: chest pain and other (GERD, anxiety) Most likely diagnosis given after review of the tests above:: GERD, substernal chest pain,anxiety Admission Indicated Admission indicated?: not indicated Admission Request Was there a request for admission?: No Disposition Plan Disposition Plan: Discharge Discharge Attestation Discharge Attestation: The patient and all family members were given an opportunity to ask questions and understood the discharge instructions. Discharge instructions specifically effects, indications for sooner follow up or return to the emergency department, and the expected course of current diagnosis. Patient condition: Stable Discharge Plan Plan Patient Disposition: HOME (Self Care) Discharge Disposition comment: Stable Prescriptions/Referrals Prescriptions/Med Rec: No Action pantoprazole [Protonix] 40 mg tablet,delayed release (DR/EC) 40 mg PO QDAY Qty: 30 0RF albuterol sulfate 90 mcg/actuation HFA aerosol inhaler 1 inh INHALATION Q4H PRN (Reason: shortness of breath or wheezing) loratadine 10 mg tablet 10 mg PO QDAY olmesartan-hydrochlorothiazide 20-12.5 mg tablet 1 tab PO QDAY thyroid (pork) [[place] Thyroid] 60 mg tablet 60 mg PO QDAY Referrals: Charu [facility] [employer] [Primary Care Provider] - In 1 week Problem List Clinical Impression: Acute epigastric pain, Anxiety Patient/Caregiver Discharge Instructions Discharge Activity: activity as tolerated Education Materials: ED Anxiety Reaction Additional Instructions: Thank you for the opportunity for serving you today. You are stable for discharged . You are advised to: Follow-up with your PCP today Return to ED for worsening of symptoms Print Language: Syriac Stand Alone Forms: Sheyla Award Info., Patient Portal Info Letter MASSIEL/LIYA Supervising Physician BISHOP Supervising Physician: MD Sree
== END 2025-02-22 15:29 | disposition home or self-care (01) ==
PROVIDERS: Nurse Practitioner Family; Emergency Provider Family Medicine; PCP Nurse Practitioner Family
DX: F41.9 Anxiety disorder, unspecified (principal); R07.9 Chest pain, unspecified; R10.13 Epigastric pain; I10 Essential (primary) hypertension
CPT/HCPCS: 36415; 71046; 80053; 83735; 83880; 84484; 85025; 85610; 85730; 93005; 99283

== ENCOUNTER → 2025-02-23 | Outpatient (CLI) | payer OTHER, SELFPAY ==
[2025-02-23 12:20] LABS: Free T3 3.9 pg/mL (2.3-4.2); Free T4 (Free Thyroxine) 1.31 ng/dL (0.89-1.76)
== END | disposition home or self-care (01) ==
LOC: COPL 11:29
PROVIDERS: PCP Family Medicine; Referring Provider Nurse Practitioner; Visit Provider Nurse Practitioner
DX: E03.9 Hypothyroidism, unspecified (principal)
CPT/HCPCS: 36415; 84439; 84443; 84481

== ENCOUNTER → 2025-03-01 | Outpatient (CLI) | payer OTHER, SELFPAY ==
--- NOTE | 2025-03-01 | XR_ITS ---
Examination: Diagnostic digital mammography, unilateral, LEFT Computer aided detection 3-D breast Tomosynthesis, unilateral Date and time of exam: March 01, 2025 0834 hours INDICATIONS: Focal asymmetry outer left breast posterior depth CC view noted on mammogram 06/12/2024 Technique: Nonmagnified MLO, CC views of the left breast have been obtained, reconstructed from 3-D Tomosynthesis images. R2 computer aided detection program utilized for evaluation of suspicious masses and/or abnormal calcifications. 3-D Tomosynthesis images obtained. Findings: The breast is heterogeneously dense, which may obscure small masses Stable focal asymmetry outer left breast No interval suspicious masses Impression: BI-RADS category 2: Benign findings Return to yearly follow-up mammography
== END | disposition home or self-care (01) ==
LOC: CDIM 08:05
PROVIDERS: Referring Provider Nurse Practitioner Family; Visit Provider Nurse Practitioner Family
DX: R92.322 Mammographic fibroglandular density, left breast (principal)
CPT/HCPCS: 77061; 77065; G0279

== ENCOUNTER → 2025-03-29 | Outpatient (CLI) | payer OTHER, SELFPAY ==
--- NOTE | 2025-03-29 08:12 | XR_ITS ---
Examination: Thoracic spine 3 views Technique : AP lateral coned lateral upper dorsal spine 3 views. Date and time: January 28, 2020 0505 hours INDICATIONS: Back pain beginning one month ago. FINDINGS: No thoracic fracture. Mild to moderate diffuse thoracic degenerative disc disease Moderate thoracic spondylosis IMPRESSION: Mild to moderate diffuse thoracic degenerative disc disease
[2025-03-29 08:28] LABS: Basophils % (Auto) 0 % (0-2.5); Eosinophils # (Auto) 0.1 Thou/mm3 (0.0-0.5); Eosinophils % (Auto) 2 % (0-10); Hematocrit 35.2 % (36.0-46.0); Immature Granulocytes % (Auto) 0 % (0-0); Immature Granulocytes Auto 0.01 Thou/mm3 (0.00-0.00); Lymphocytes % (Auto) 34 % (10-50); Mean Corpuscular HGB Conc 34.1 g/dl (31.0-37.0); Mean Corpuscular Hemoglobin 28.7 pg (25.0-35.0); Mean Corpuscular Volume 84 fL (80-100); Monocytes # (Auto) 0.4 Thou/mm3 (0.0-0.8); Monocytes % (Auto) 8 % (0-12); Neutrophils # (Auto) 3.3 Thou/mm3 (1.8-7.7); Neutrophils % (Auto) 57 % (37-80); Nucleated Red Blood Cell % 0 /100 WBC (0); Platelet Count 267 Thou/mm3 (140-440); RDW Standard Deviation 41.7 fL (36.4-46.3); Red Blood Count 4.18 Miln/mm3 (4.00-5.20); White Blood Count 5.8 Thou/mm3 (3.6-11.0)
[2025-03-29 09:10] LABS: Vitamin D 25 Hydroxy Total 33.9 ng/mL (7.3-40.2)
[2025-03-29 09:13] LABS: Alanine Aminotransferase 17 U/L (10-49); Albumin, Serum 4.4 gm/dL (3.5-5.0); Albumin/Globulin Ratio 1.6 (1.2-2.2); Alkaline Phosphatase 72 U/L (46-116); Anion Gap 8 (7-16); Aspartate Amino Transferase 20 U/L (0-34); BUN/Creatinine Ratio 18 Ratio (12-20); Bilirubin,Total 0.5 mg/dL (0.3-1.2); Blood Urea Nitrogen 14 mg/dL (9-23); Calcium 9.5 mg/dL (8.3-10.6); Calcium (Corrected) 9.5 mg/dL (8.5-10.1); Carbon Dioxide 29.9 mMol/L (20.0-31.0); Chloride 103 mMol/L (98-107); Creatinine (Component) 0.8 mg/dL (0.6-1.3); Free T4 (Free Thyroxine) 1.05 ng/dL (0.89-1.76); Globulin 2.7 gm/dL (2.3-3.5); Glucose 99 mg/dL (74-106); Osmolality,Calculated 281 (275-295); Sodium 141 mMol/L (136-145); Total Protein 7.1 gm/dL (5.7-8.2); eGFR > 60 See Note
== END | disposition home or self-care (01) ==
LOC: COPL 07:30 → CDIM 07:30
PROVIDERS: PCP Family Medicine; Referring Provider Nurse Practitioner Family; Visit Provider Nurse Practitioner Family
DX: M51.34 Other intervertebral disc degeneration, thoracic region (principal); E03.9 Hypothyroidism, unspecified; E55.9 Vitamin D deficiency, unspecified; I10 Essential (primary) hypertension
CPT/HCPCS: 36415; 72070; 80053; 82306; 84439; 84443; 85025

== ENCOUNTER → 2025-05-09 | Outpatient (CLI) | payer OTHER, SELFPAY ==
[2025-05-09 10:09] LABS: Folate > 24.00 ng/mL (>5.38); Follicle Stimulating Hormone 51.68 mIU/mL (See Note); Vitamin B12 640 pg/mL (211-911)
[2025-06-05 07:00] LABS: Cortisol,total,LC/MS/MS* 7.7 mcg/dL; Estradiol, Ultrasensitive* 5 pg/mL; Luteinizing Hormone* 15.7 mIU/mL; Progesterone,LC/MS* <0.1 ng/mL; Prolactin* 11.9 ng/mL; Testosterone, Free,Dialysis 1.2 pg/mL (0.1-6.4); Testosterone, Total, Dialysis 12 ng/dL (2-45)
== END | disposition home or self-care (01) ==
LOC: COPL 09:04
PROVIDERS: PCP Family Medicine; Referring Provider Nurse Practitioner Family; Visit Provider Nurse Practitioner Family
DX: L65.9 Nonscarring hair loss, unspecified (principal); E28.319 Asymptomatic premature menopause; R53.81 Other malaise; R53.83 Other fatigue
CPT/HCPCS: 36415; 82533; 82607; 82670; 82746; 83001; 83002; 84144; 84146; 84402; 84403

== ENCOUNTER → 2025-06-13 | Outpatient (CLI) | payer OTHER, SELFPAY ==
--- NOTE | 2025-06-13 13:00 | XR_ITS ---
Examination: Screening digital mammography, bilateral Computer aided detection 3-D breast Tomosynthesis, bilateral Date and time of exam: June 13, 2012 2025, 1302 hours Compared to mammograms dating to April 03, 2022 Indication: Screening Technique: Nonmagnified MLO, CC views of the breasts to been obtained, reconstructed from 3-D Tomosynthesis images. R2 computer aided detection program utilized for evaluation of suspicious masses and/or abnormal calcifications. 3-D Tomosynthesis images obtained. Findings: The breasts are heterogeneously dense, which may obscure small masses 16mm oval mass 12:00 position right breast mid depth Impression: BI-RADS Category 0: Incomplete: Need additional imaging evaluation Recommend follow-up spot tomographic views of 16 mm oval mass 12:00 position right breast as well as bilateral breast sonography to complete workup
== END | disposition home or self-care (01) ==
LOC: CDIM 12:47
PROVIDERS: PCP Nurse Practitioner Family; Referring Provider Nurse Practitioner Family; Visit Provider Nurse Practitioner Family
DX: Z12.31 Encounter for screening mammogram for malignant neoplasm of breast (principal); N63.15 Unspecified lump in the right breast, overlapping quadrants
CPT/HCPCS: 77063; 77067

== ENCOUNTER → 2025-07-30 | Outpatient (CLI) | payer OTHER, SELFPAY ==
--- NOTE | 2025-07-30 14:30 | XR_ITS ---
Examination: Breast ultrasound complete, bilateral Date and time of exam: July 30, 2025, 1447 hours INDICATIONS: Mammogram 06/13/2020 five 16mm oval mass right breast 12 o'clock position Technique: Real-time grayscale ultrasonographic imaging bilateral breasts, including all 4 quadrants as well as nipple retroareolar and axillary regions. Findings: Sonographic images right breast 9:00 cyst 6 x 6 mm retroareolar cyst 5 x 6 mm No solid nodules Sonographic images left breast 8:00 cyst 6 x 8 mm, complex Retroareolar cyst 7 x 6 mm No solid nodules IMPRESSION: BI-RADS Category 2: Benign findings
--- NOTE | 2025-07-30 15:30 | XR_ITS ---
Examination: Diagnostic digital mammography, unilateral, right Computer aided detection 3-D breast Tomosynthesis, unilateral Date and time of exam: July 30, 2025, 1505 hours INDICATIONS: 16 mm nodule 12 o'clock position right breast on mammogram 06/13/2025 Technique: Nonmagnified MLO, CC views of the right breast have been obtained, reconstructed from 3-D Tomosynthesis images. R2 computer aided detection program utilized for evaluation of suspicious masses and/or abnormal calcifications. 3-D Tomosynthesis images obtained. Findings: The breast is heterogeneously dense, which may obscure small masses Focal asymmetry remains upper right breast on the MLO view Impression: BI-RADS category 3: Probably benign findings Recommend 1 additional 6-month right mammogram follow-up
== END | disposition home or self-care (01) ==
PROVIDERS: PCP Nurse Practitioner Family; Referring Provider Nurse Practitioner Family; Visit Provider Nurse Practitioner Family
DX: R92.331 Mammographic heterogeneous density, right breast (principal)
CPT/HCPCS: 76641; 77061; 77065; G0279

== ENCOUNTER 2025-09-14 10:30 | Day surgery (SDC) | payer OTHER, SELFPAY ==
[2025-09-13 14:16] VITALS: BMI 34.3
[2025-09-14] VITALS (8 sets, daily range): BP systolic 139–186; BP diastolic 76–114; PULSE 73–88; RESP 12–20; TEMP 36.3–36.4; O2SAT 94–100; BMI 35.2
[2025-09-14] MEDS: fentaNYL CIT INJ 50 mCg/ML AMP 2ML (ASD USE ONLY) IVP (12:45)
[2025-09-14] MEDS: SODIUM CHLORIDE 0.9% 500 ML 500 ML 20 ML IV (12:45)
[2025-09-14] MEDS: BENZOCAINE 20% (Hurricaine) SPRAY 1 DOSE TOP (12:45)
[2025-09-14] MEDS: MIDAZOLAM INJ 1 MG/ML VIAL 2 ML (ASD USE ONLY) 2 MG IVP (12:54)
== END 2025-09-14 13:58 | disposition home or self-care (01) ==
PROVIDERS: PCP Nurse Practitioner Family; Referring Provider Specialist; Visit Provider Specialist
PROC: (CPT 43239; principal; 2025-09-14 11:15)
DX: K21.00 Gastro-esophageal reflux disease with esophagitis, without bleeding (principal); I10 Essential (primary) hypertension; Z79.899 Other long term (current) drug therapy; K29.50 Unspecified chronic gastritis without bleeding
CPT/HCPCS: 43239; 81025; A4649; J1200; J2250; J3010; J7999; A9270